=== PATIENT | female | born 1980 | race Caucasian/White ===

== ENCOUNTER 2017-03-09 17:26 | Emergency (ER) | payer SELFPAY ==
[~2017-03-09] VITALS: Ht 160 cm; Wt 82.1 kg
[2017-03-09 17:31] VITALS: Ht 160 cm; Wt 82.1 kg
[2017-03-09] MEDS ORDERED: PRENAT PO (18:15)
[2017-03-09] MEDS ORDERED: ASPI-664 PO (18:15)
== END 2017-03-09 20:58 | disposition left against medical advice (07) ==
LOC: FTE 17:26
DX: Z53.21 Procedure and treatment not carried out due to patient leaving prior to being seen by health care provider (principal)

== ENCOUNTER 2017-03-09 17:43 | Outpatient (CLI) | payer MEDICAID ==
[~2017-03-09] VITALS: Ht 152.4 cm; Wt 82.6 kg
[2017-03-09 18:15] VITALS: Ht 152.4 cm; Wt 82.6 kg
[2017-03-09] MEDS ORDERED: ASPI-664 PO (18:15)
[2017-03-09] MEDS ORDERED: PRENAT PO (18:15)
[2017-03-09 18:16] VITALS: BP 109/62; PULSE 91; RESP 18
[2017-03-09 19:48] LABS: ADD UMIC YES; URINE BILIRUBIN (Dip) NEGATIVE (NEGATIVE); URINE BLOOD (Dip) TRACE (NEGATIVE); URINE COLOR LT. YELLOW (YELLOW); URINE GLUCOSE (Dip) NEGATIVE (NEGATIVE); URINE KETONES (Dip) NEGATIVE (NEGATIVE); URINE LEUKOCYTE ESTERASE (Dip) 1+ (NEGATIVE); URINE NITRITE (Dip) NEGATIVE (NEGATIVE); URINE TOTAL PROTEIN (Dip) NEGATIVE (NEGATIVE); URINE UROBILINOGEN (Dip) 1.0 E.U./dL (0.1-1.0)
--- NOTE | 2017-03-09 19:53 | RADRPT ---
PROCEDURE: Abdominal ultrasound CLINICAL INDICATION: Abdominal pain TECHNIQUE: Galloway scale and color doppler ultrasound images of the right lower quadrant. COMPARISON: None. FINDINGS: No blind ending tubular structure is seen. The appendix is not definitely visualized. No lymphadenopathy. No free fluid. IMPRESSION: Appendix not definitely visualized. Therefore, the diagnosis of appendicitis cannot be confidently included nor excluded. RPTAT: AADD .Cayetano Tejada MD, MD Date Time Electronically viewed and signed by .Cayetano Tejada MD, on 03/09/2017 19:53 .B/
[2017-03-09 21:06] LABS: BACTERIA,URINE FEW; SQUAMOUS EPITHELIAL CELL,UR MODERATE; URINE RBCS 0-2 /HPF (0)
[2017-03-09 21:08] LABS: ADD SCAN DIFF NO
[2017-03-09 21:10] LABS: BASOPHILS % 0.3 % (0.0-2.0); EOSINOPHILS # 0.1 10^3/ul (0.0-0.5); EOSINOPHILS % 0.5 % (0.0-7.0); HEMATOCRIT 31.3 % (37.0-47.0); HEMOGLOBIN 10.3 g/dl (12.0-16.0); LYMPHOCYTES # 2.6 10^3/ul (0.8-2.9); LYMPHOCYTES % 17.5 % (15.0-51.0); MEAN CORPUSCULAR HEMOGLOBIN 27.7 pg (29.0-33.0); MEAN CORPUSCULAR HGB CONC 32.9 g/dl (32.0-37.0); MEAN CORPUSCULAR VOLUME 84.1 fl (82.0-101.0); MEAN PLATELET VOLUME 8.9 fl (7.4-10.4); MONOCYTE # 1.1 10^3/ul (0.3-0.9); MONOCYTES % 7.1 % (0.0-11.0); PLATELET COUNT 460 10^3/UL (140-415); RED BLOOD COUNT 3.72 10^6/ul (4.20-5.40); RED CELL DISTRIBUTION WIDTH 13.2 % (11.5-14.5); WHITE BLOOD COUNT 14.9 10^3/ul (4.8-10.8)
[2017-03-09 21:23] LABS: ALBUMIN 3.4 g/dl (3.3-4.9)
[2017-03-09 21:24] LABS: POTASSIUM 3.6 mmol/L (3.5-5.1)
[2017-03-09 21:26] LABS: ALBUMIN/GLOBULIN RATIO 0.79; BILIRUBIN,INDIRECT 0.1 mg/dl (0-1.1); BILIRUBIN,TOTAL 0.1 mg/dl (0.2-1.3); CREATININE 0.53 mg/dl (0.44-1.00); TOTAL PROTEIN 7.7 g/dl (6.1-8.1)
[2017-03-09 21:27] LABS: CALCIUM 8.9 mg/dl (8.4-10.2)
[2017-03-09] MEDS ORDERED: LACTATED RINGER'S 500 ML IV ONE (22:00)
[2017-03-09] MEDS ORDERED: CEFTRIAXONE 1 GM/50 ML (PMX) 50 ML IVPB ONE (22:00)
[2017-03-09] MEDS ORDERED: SOD CHLORIDE 0.9% 1,000 ML IV SCH (22:00)
--- NOTE | 2017-03-10 01:19 | TRIAGE ---
OB Triage Datetime Report Generated by CPN: 03/10/2017 01:19 Datetime: 03/10/2017 00:22 Labor Evaluation Frequency: 0 Monitor Mode: External Duration (sec)2399: 0 Pattern: Normal: <= 5 Contractions in 10 Minutes Resting Tone Antonito: Relaxed Pain Assessment Pain Scale: 3 Pain Presence: Intermittent Pain Type: Sharp; Ache Pain Location: Other Pain Goal: 1 Pain Relief Measures: Comfort Measures Pain Assessment Comments: pt. states she can move more easily at this time. Pain is decreasing - r ight side of abdomen. Datetime: 03/09/2017 23:00 Labor Evaluation Frequency: 0 Monitor Mode: External Duration (sec)2399: 0 Pattern: Normal: <= 5 Contractions in 10 Minutes Resting Tone Antonito: Relaxed Datetime: 03/09/2017 22:00 Labor Evaluation Frequency: 0 Monitor Mode: External Duration (sec)2399: 0 Pattern: Normal: <= 5 Contractions in 10 Minutes Resting Tone Antonito: Relaxed Datetime: 03/09/2017 20:38 Labor Evaluation Frequency: 0 Monitor Mode: External Duration (sec)2399: 0 Pattern: Normal: <= 5 Contractions in 10 Minutes Resting Tone Antonito: Relaxed Heart Rate FHR Baseline Rate: 140 Monitor Mode: External US Variability: Moderate 6-25 bpm Accelerations: 10X10 Category: Category I Datetime: 03/09/2017 19:00 Stage of : OB Triage Maternal Assessment Level of Consciousness: Fully Conscious Labor Evaluation Frequency: NONE Monitor Mode: External Resting Tone Antonito: Relaxed Heart Rate FHR Baseline Rate: 150 Monitor Mode: External US Variability: Moderate 6-25 bpm Accelerations: AGA Decelerations: AGA Pain Assessment Pain Scale: 0 Pain Presence: None/Denies Pain Type: N/A Pain Goal: 3 Vaginal Exam Membrane Status: Intact Vaginal Bleeding: None Datetime: 03/09/2017 18:13 Assessment Type: Triage Maternal Assessment Level of Consciousness: Fully Conscious DTR's/Clonus: DTRs 2+; No Clonus Headache: Denies Blurred Vision: No Respiratory Effort: Unlabored; Regular Rhythm; Equal Expansion Breath Sounds, Left: Clear and Equal Breath Sounds, Right: Clear and Equal Nausea/Vomiting: Denies RUQ Epigastric Pain: Denies Lower Extremities Edema: None Degree: None Upper Extremities Edema: None Degree: None Facial Edema: None Fall Risk Assessment History of Falling: (0) No Secondary Diagnosis: (0) No Ambulatory Aid: (0) Bedrest/Nurse Assist IV Therapy: (0) No Gait: (0) Normal/Bedrest/Immobile Mental Status: (0) Oriented to Own Ability Fall Score: 0 Fall Risk Score Definition: No Risk: No action required Datetime: 03/09/2017 18:07 Monitor Mode: External Monitor Mode: External US Datetime: 03/09/2017 18:03 Time of Arrival: 03/09/2017 17:40 EGA: 22.4 Arrived By: Ambulatory Arrived From: Home Chief Complaint: C/O RIGHT LOWER ABDOMINAL PAIN THAT RADIATES DOWN RIGHT LEG Movement: Present Contractions: Denies/Absent Rupture of Membranes: Denies Vaginal Bleeding: None Vaginal Discharge: Denies Recent Sexual Intercouse: Denies Abdominal Trauma: Not Applicable Patient Complaints: Other Provider Notified: LAMONT Initial Plan: NST
--- NOTE | 2017-03-10 01:20 | PN ---
Date/Time of Note Date/Time of Note DATE: 03/10/17 TIME: 01:05 OB Subjective Subjective Subjective lower abdominal pain rt for the last 3days no nausea vomiting or diarrhea pain increase with movement ,alleviated by rest denies any febrile episodes only has urinary frequency no dysuria pain is posotional , increase with left lrecumbant position OB Objective Objective Objective temp 98 hr 91 b/p 109/62 abdomen soft no guarding no referring tenderness or rebound tenderness mild tenderness on rlq no ruq or epigastric or periumbilical tenderness cva questionable tenderness on rt u/s unable to see gabriel or adnexal mass wbc 14.9000 u/a trace blood with 1+ leuk esteras HEENT: WNL Heart: Rhythm Normal Lungs: Clear, Equal Abdomen: WNL Extremities: Normal Reflexes: Normal OB Assessment/Plan Other Assessment: IUP 22.4w pelvic pain round lig syndrome 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
--- NOTE | 2017-03-10 09:58 | CONS ---
Date/Time of Note Date/Time of Note DATE: 03/10/17 TIME: 09:43 Consultation Date/Type/Reason Admit Date/Time March 09, 2017 OB triage consult Reason for Consultation This patient is a 36 years old 4 para 3 living 3 who had all her 3 deliveries by section She came to the triage area complaining of right lower quadrant pain since morning denies any vaginal bleeding On examination she is a well-developed well-nourished lady in the mid third her abdomen is generally soft she does have mild tenderness on her right lower quadrant no pain on the left quadrant of upper abdomen movement is normal heart is normal did not have any CVA tenderness her vital signs were basically within normal limits Blood pressure 109/62 pulse rate 91 respiration 18 temperature 98 On her laboratory studies there was a 1+ leukocyte in urine no bacteria in urine nitrate was negative And blood count her WBC was 14,029 mild anemia hemoglobin 10.3 hematocrit 31 Her other lab studies were also normal Laboratory Tests Test 03/09/17 19:00 03/09/17 21:00 Urine Color LT. YELLOW Urine Clarity CLEAR Urine pH 6.0 Urine Specific Gile 1.010 Urine Ketones NEGATIVE Urine Nitrite NEGATIVE Urine Bilirubin NEGATIVE Urine Urobilinogen 1.0 E.U./dL Urine Leukocyte Esterase 1+ Urine Microscopic RBC 0-2/HPF Urine Microscopic WBC 0-2/HPF Urine Squamous Epithelial Cells MODERATE Urine Bacteria FEW Urine Hemoglobin TRACE Urine Glucose NEGATIVE% Urine Total Protein NEGATIVE White Blood Count 14.910^3/ul Red Blood Count 3.7210^6/ul Hemoglobin 10.3g/dl Hematocrit 31.3% Mean Corpuscular Volume 84.1fl Mean Corpuscular Hemoglobin 27.7pg Mean Corpuscular Hemoglobin Concent 32.9g/dl Red Cell Distribution Width 13.2% Platelet Count 03317^3/UL Mean Platelet Volume 8.9fl Neutrophils % 74.0% Lymphocytes % 17.5% Monocytes % 7.1% Eosinophils % 0.5% Basophils % 0.3% Nucleated Red Blood Cells % 0.0/100WBC Neutrophils # 11.010^3/ul Lymphocytes # 2.610^3/ul Monocytes # 1.110^3/ul Eosinophils # 0.110^3/ul Basophils # 0.010^3/ul Nucleated Red Blood Cells # 0.010^3/ul Sodium Level 136mmol/L Potassium Level 3.6mmol/L Chloride Level 103mmol/L Carbon Dioxide Level 22mmol/L Anion Gap 15 Blood Urea Nitrogen 6mg/dl Creatinine 0.53mg/dl Glucose Level 80mg/dl Calcium Level 8.9mg/dl Total Bilirubin 0.1mg/dl Direct Bilirubin 0.00mg/dl Indirect Bilirubin 0.1mg/dl Aspartate Amino Transf (AST/SGOT) 13IU/L Alanine Aminotransferase (ALT/SGPT) 20IU/L Alkaline Phosphatase 167IU/L Total Protein 7.7g/dl Albumin 3.4g/dl Globulin 4.30g/dl Albumin/Globulin Ratio 0.79 Current Medications Medications (Trade) Dose Ordered Sig/Trevor Route PRN Reason Start Time Stop Time Status Last Admin Dose Admin Ceftriaxone Sodium 50 ml @ On laboratory studies 100 mls/hr ONCE ONCE IVPB 03/09/17 22:00 03/09/17 22:29 DC 03/09/17 22:25 100 MLS/HR Lactated Ringer's 500 ml @ 500 mls/hr Q1H ONCE IV 03/09/17 22:00 03/09/17 22:59 DC Sodium Chloride (NS) 1,000 ml @ 125 mls/hr Q8H IV 03/09/17 22:00 03/10/17 01:05 DC 03/09/17 22:25 125 MLS/HR Constitutional: No chills, No diaphoresis, No disoriented, No febrile, No improved, No no complaints, No other, No poor po, No requiring IVF, No requiring O2 Eyes: No discharge, No no complaints, No other, No pain, No redness, No visual change ENT: No bleeding, No congestion, No discharge, No dysphagia, No no complaints, No other, No pain, No sore throat Respiratory: No cough, No no complaints, No other, No pain, No pleuritic pain, No shortness of breath, No sputum, No wheezing Cardiovascular: other, No chest pain, No edema, No lightheadedness, No no complaints, No orthopenea , No palpitations, No paroxysmal nocturnal dyspnea Gastrointestinal: other (Slight right lower quadrant pain no rebound bowel sounds were normal no CVA tenderness), No blood, No constipation, No decreased appetite, No diarrhea, No flatus, No nausea, No no complaints, No pain, No passing stool, No vomiting Genitourinary: other (No CVA tenderness), No bleeding, No discharge, No dysuria, No flank pain, No hematuria, No no complaints Musculoskeletal: No back pain, No bone/joint pain, No neck pain, No no complaints, No other, No restricted range of motion, No swelling Skin: No bruising, No erythema, No laceration, No no complaints, No other, No pruritis, No rash, No skin lesions Neurologic: No confusion, No dizziness, No focal-weakness, No headache, No no complaints, No other, No seizure, No syncope Endocrine: No dry skin, No no complaints, No other, No polydypsia, No polyuria , No temp intolerance Additional Comments Follow-up was done by Dr. Shukla who prescribed ceftriaxone and patient was discharged home to be followed in her own clinic Social History Smoking Status: Never smoker Exam/Review of Systems Vital Signs Vitals Vital Signs Date Time Temp Pulse Resp B/P Pulse Ox O2 Delivery O2 Flow Rate FiO2 03/09/17 18:16 98.0 91 18 109/62 Room Air Results Result Diagram: 03/09/17209903/09/17 2100 Results 24 hrs Laboratory Tests Test 03/09/17 19:00 03/09/17 21:00 Urine Color LT. YELLOW Urine Clarity CLEAR Urine pH 6.0 Urine Specific Gile 1.010 Urine Ketones NEGATIVE Urine Nitrite NEGATIVE Urine Bilirubin NEGATIVE Urine Urobilinogen 1.0 E.U./dL Urine Leukocyte Esterase 1+ H Urine Microscopic RBC 0-2 Urine Microscopic WBC 0-2 Urine Squamous Epithelial Cells MODERATE Urine Bacteria FEW Urine Hemoglobin TRACE Urine Glucose NEGATIVE Urine Total Protein NEGATIVE White Blood Count 14.9 H Red Blood Count 3.72 L Hemoglobin 10.3 L Hematocrit 31.3 L Mean Corpuscular Volume 84.1 Mean Corpuscular Hemoglobin 27.7 L Mean Corpuscular Hemoglobin Concent 32.9 Red Cell Distribution Width 13.2 Platelet Count 460 H Mean Platelet Volume 8.9 Neutrophils % 74.0 Lymphocytes % 17.5 Monocytes % 7.1 Eosinophils % 0.5 Basophils % 0.3 Nucleated Red Blood Cells % 0.0 Neutrophils # 11.0 H Lymphocytes # 2.6 Monocytes # 1.1 H Eosinophils # 0.1 Basophils # 0.0 Nucleated Red Blood Cells # 0.0 Sodium Level 136 Potassium Level 3.6 Chloride Level 103 Carbon Dioxide Level 22 Anion Gap 15 Blood Urea Nitrogen 6 L Creatinine 0.53 Glucose Level 80 Calcium Level 8.9 Total Bilirubin 0.1 L Direct Bilirubin 0.00 Indirect Bilirubin 0.1 Aspartate Amino Transf (AST/SGOT) 13 L Alanine Aminotransferase (ALT/SGPT) 20 Alkaline Phosphatase 167 H Total Protein 7.7 Albumin 3.4 Globulin 4.30 H Albumin/Globulin Ratio 0.79 GIL MIGUEL MD Mar 10, 2017 09:54
== END 2017-03-10 00:45 | disposition home or self-care (01) ==
LOC: L-D 17:43 → OBT 17:43 → L-D 17:45 → OBT 03-10 00:45
DX: O26.892 Other specified pregnancy related conditions, second trimester (principal); R10.30 Lower abdominal pain, unspecified; R35.0 Frequency of micturition; R10.2 Pelvic and perineal pain; O09.522 Supervision of elderly multigravida, second trimester; Z3A.22 22 weeks gestation of pregnancy
CPT/HCPCS: 76705; 80053; 81001; 85025; 96361; 96365; J0696; J7030; J7120; Z7500; 81003; G0463

== ENCOUNTER 2017-06-28 08:46 | Inpatient (IN) | payer MEDICAID ==
[~2017-06-28] VITALS: Ht 152.4 cm; Wt 87.4 kg
[~2017-06-28 08:46] MED LIST: ASPI-664 PO; PRENAT PO
[2017-06-28 09:27] VITALS: Ht 152.4 cm; Wt 87.4 kg
[2017-06-28 09:28] VITALS: BP 129/66; PULSE 76; RESP 18
[2017-06-28] MEDS ORDERED: OXYTOCIN 30 UNITS/LR 500 ML IV SCH ×4 (09:30→17:08)
[2017-06-28] MEDS ORDERED: IBUPROFEN 600 MG TAB PO PRN (09:30)
[2017-06-28] MEDS ORDERED: LACTATED RINGER'S 1,000 ML IV PRN (09:30)
[2017-06-28] MEDS ORDERED: OXYTOCIN 30 UNITS/LR 500 ML IV PRN ×2 (09:30→17:30)
[2017-06-28] MEDS ORDERED: CARBOPROST 250 MCG INJ IM PRN ×2 (09:30→17:30)
[2017-06-28] MEDS ORDERED: LIDOCAINE 1% (MPF) 30 ML INJ INJ PRN (09:30)
[2017-06-28] MEDS ORDERED: MISOPROSTOL 200 MCG TAB PR PRN ×2 (09:30→17:30)
[2017-06-28] MEDS ORDERED: METHYLERGONOVINE 0.2 MG INJ IM PRN ×2 (09:30→17:30)
[2017-06-28] MEDS ORDERED: AMPICILLIN 2 GM/NS (PMX) 100 ML IV ONE (09:30)
[2017-06-28] MEDS: LACTATED RINGER'S 1,000 ML IV SCH ×2 (10:16→14:53)
[2017-06-28 10:24] LABS: BASOPHIL # 0.1 10^3/ul (0.0-0.1); BASOPHILS % 0.4 % (0.0-2.0); EOSINOPHILS % 0.3 % (0.0-7.0); HEMATOCRIT 31.5 % (37.0-47.0); HEMOGLOBIN 10.1 g/dl (12.0-16.0); LYMPHOCYTES # 2.4 10^3/ul (0.8-2.9); LYMPHOCYTES % 16.9 % (15.0-51.0); MEAN CORPUSCULAR HGB CONC 32.1 g/dl (32.0-37.0); MONOCYTE # 0.8 10^3/ul (0.3-0.9); MONOCYTES % 5.5 % (0.0-11.0); NEUTROPHIL # 10.7 10^3/ul (1.6-7.5); NEUTROPHILS % 76.2 % (39.0-77.0); PLATELET COUNT 370 10^3/UL (140-415); RED BLOOD COUNT 4.04 10^6/ul (4.20-5.40); RED CELL DISTRIBUTION WIDTH 17.3 % (11.5-14.5); WHITE BLOOD COUNT 14.1 10^3/ul (4.8-10.8)
[2017-06-28] MEDS: BUTORPHANOL 2 MG INJ IV PRN ×2 (10:43→13:02)
[2017-06-28 10:44] LABS: INR 0.9; PARTIAL THROMBOPLASTIN TIME 28.7 Sec (25.0-35.0); PROTIME 12.1 Sec (12.2-14.2); PT RATIO 0.9
--- NOTE | 2017-06-28 13:14 | RADRPT ---
PROCEDURE: OB ultrasound for biophysical profile CLINICAL INDICATION: Contractions TECHNIQUE: Multiple sonographic images of the pelvis were obtained. Transabdominal view of the gr avid uterus are available for review. The images were reviewed on a PACS workstation. COMPARISON: None available FINDINGS: breathing movement = 2/2 tone = 2/2 motion = 2/2 NINFA = 2/2 NINFA = 8.5 cm Single live intrauterine with cardiac activity. heart rate equals 132 beats p er minute. Presentation is cephalic. The placenta is anterior, grade II. IMPRESSION: 1. Single viable intrauterine gestation. 2. Biophysical profile = 06/29. 3. NINFA = 8.5 cm. RPTAT: KK .Karl Humphrey MD, MD Date Time Electronically viewed and signed by .Karl Humphrey MD, MD on 06/28/2017 13:14 .B/
[2017-06-28] MEDS ORDERED: AMPICILLIN 1 GM/NS (PMX) 50 ML IV SCH (13:30)
[2017-06-28 15:53] LABS: ADD UMIC YES; UR ASCORBIC ACID NEGATIVE (NEGATIVE); UR BILIRUBIN (Dip) NEGATIVE (NEGATIVE); UR BLOOD (Dip) 1+ mg/dL (NEGATIVE); UR CLARITY SLIGHTLY CLOUDY (CLEAR); UR COLOR YELLOW (YELLOW); UR GLUCOSE (Dip) NEGATIVE (NEGATIVE); UR KETONES (Dip) TRACE mg/dL (NEGATIVE); UR LEUKOCYTE ESTERASE (Dip) TRACE Leu/ul (NEGATIVE); UR MUCUS FEW /HPF (NONE SEEN); UR NITRITE (Dip) NEGATIVE (NEGATIVE); UR RBC 17 /HPF (0-5); UR SPECIFIC GRAVITY (Dip) 1.014 (1.003-1.030); UR SQUAMOUS EPITHELIAL CELL FEW /HPF (FEW); UR TOTAL PROTEIN (Dip) NEGATIVE (NEGATIVE); UR UROBILINOGEN (Dip) NEGATIVE (NEGATIVE)
[2017-06-28] MEDS ORDERED: FENTAnyl 50 MCG/ML VIAL ONE (16:02)
--- NOTE | 2017-06-28 16:28 | HP ---
Date/Time of Note Date/Time of Note DATE: 06/28/17 TIME: 16:25 OB - History Hx of Present Free Text/Dictation pt presents in labor. with Ucx no LOF good FM : 2 Para: 1 Care: Limited Care Obstetrical Complications: None Medical Complications: None Past Family/Social History * Past Medical, Surgical, Family and Obstetric Histories reviewed from chart. OB Admission Exam Vital Signs Vital Signs 37 Vital Signs Date Time Temp Pulse Resp B/P Pulse Ox O2 Delivery O2 Flow Rate FiO2 06/28/17 09:28 98.3 76 18 129/66 Room Air Physical Exam HEENT: WNL Abdomen: WNL Last 72 hours Lab Results CBC & BMP 06/28/17 10:00 OB Assessment/Plan Plan: Expectant Management Other plan: iup 38 + in labor plan pain meds as needed. TANNA HEADLEY MD Jun 28, 2017 16:28
[2017-06-28] MEDS ORDERED: FENTAnyl 50 MCG/ML VIAL IV ONE (16:30)
--- NOTE | 2017-06-28 16:30 | LDN ---
Date/Time of Note Date/Time of Note DATE: 06/28/17 TIME: 16:28 Delivery Summary pt delivered viable without complications Placenta Delivered: Spontaneously Meconium: none Episiotomy: No Perineal laceration: 2 Laceration repair: 2nd degree lac repaired with 2-0 vicryl Anesthesia type: None Estimated blood loss: 250 Sponge & Needle done & correct: Yes All needle counts correct: Yes Any foreign bodies felt in the: No Problems: Infant Delivery Information Sex Sex: male Suctioning Nose & mouth suctioned at rik: Yes Umbilical Cord Umbilical cord with: 3 Vessels Cord presentations: no nuchal cord Cord Blood was obtained: Yes Mother & Baby Disposition Disposition Mom & Baby to Maternity; Good: Yes Baby to NICU: No TANNA HAEDLEY MD Jun 28, 2017 16:30
[2017-06-28] MEDS ORDERED: BENZOCAINE 20% 56 ML SPRAY TOP PRN (17:30)
[2017-06-28] MEDS ORDERED: DIBUCAINE 1% 30 GM OINT PR PRN (17:30)
[2017-06-28] MEDS ORDERED: WITCH HAZEL/GLYCERIN PAD PR PRN (17:30)
[2017-06-28] MEDS ORDERED: ACETAMINOPHEN/CODEINE #3 TAB PO PRN (17:30)
[2017-06-28 17:55] VITALS: BP 119/62; PULSE 74; RESP 19
[2017-06-28 18:10] LABS: ALBUMIN 3.3 g/dl (3.3-4.9); ALBUMIN/GLOBULIN RATIO 0.84; BILIRUBIN,INDIRECT 0.2 mg/dl (0-1.1); BILIRUBIN,TOTAL 0.2 mg/dl (0.2-1.3); CALCIUM 8.7 mg/dl (8.4-10.2); CREATININE 0.57 mg/dl (0.44-1.00); TOTAL PROTEIN 7.2 g/dl (6.1-8.1); URIC ACID 4.7 mg/dl (3.1-7.9)
[2017-06-28] MEDS: IBUPROFEN 600 MG TAB PO SCH ×2 (18:12→23:39)
[2017-06-28 18:25] VITALS: BP 126/71; PULSE 79; RESP 20
[2017-06-28 19:45] VITALS: BP 123/68; PULSE 76; RESP 18
[2017-06-28] MEDS: LACTATED RINGER'S 1,000 ML IV* SCH (20:36)
[2017-06-28] MEDS: SENNA/DOCUSATE NA (8.6MG/50MG) TAB PO SCH (21:22)
[2017-06-29 00:20] VITALS: BP 120/70; PULSE 70; RESP 18
[2017-06-29 04:00] VITALS: BP 108/77; PULSE 78; RESP 18
[2017-06-29] MEDS: IBUPROFEN 600 MG TAB PO SCH ×4 (06:01→23:33)
[2017-06-29 08:00] VITALS: BP 111/67; PULSE 77; RESP 20
[2017-06-29] MEDS: PRENATAL VITAMIN PO SCH (10:07)
[2017-06-29] MEDS: SENNA/DOCUSATE NA (8.6MG/50MG) TAB PO SCH ×2 (10:07→21:30)
[2017-06-29] MEDS: ASPIRIN (EC) 81 MG TAB PO SCH (10:07)
[2017-06-29 12:17] LABS: RUBELLA ANTIBODY - IGG <0.90 index
--- NOTE | 2017-06-29 19:12 | PD.PPDC ---
[employer] Discharge Instruction Condition Patient Condition: Good Diet Diet: Resume Regular Diet Activity/Restrictions Activity: Normal Activity May Shower Restrictions: No Exercising No Lifting No Driving No Sexual Activity Nothing in the Vagina No [place] No Tampons, douche Follow-up Follow-up with Physician: 3, Week/Weeks Return to clinic for ECONOMIC DEVELOPMENT SPECIALIST Instructions: Fever greater than 101 Chills Worsening abdominal pain Excessive Vaginal Bleeding More than 2 pads per hour Unable to tolerate diet OB Instructions: Breast Tenderness Depression Blurried Vision Headache Surgical Instructions: Incisional Drainage Incisional Redness MENG RANGEL MD Jun 29, 2017 19:12
--- NOTE | 2017-06-29 19:15 | DS ---
Date/Time of Note Date/Time of Note DATE: 06/29/17 TIME: 19:14 Obstetrical Discharge Record Final Diagnosis Final Diagnosis: Term delivered Vaginal Delivery Obstetrical Delivery: Spontaneous Complications Augmentation: No Induction: No Condition on Discharge Physical Assessment Voiding: Yes Bowel Movement: Yes Breast: Soft, non-tender, Filling Fundus: Firm Calf Tenderness: No Patient Condition: Fair MENG RANGEL MD Jun 29, 2017 19:15
[2017-06-29 19:50] VITALS: BP 118/70; PULSE 77; RESP 18
[2017-06-30 04:05] VITALS: BP 127/60; PULSE 72; RESP 18
[2017-06-30] MEDS: IBUPROFEN 600 MG TAB PO SCH ×2 (06:00→11:54)
[2017-06-30 08:45] VITALS: BP 108/68; PULSE 76; RESP 18
[2017-06-30] MEDS: SENNA/DOCUSATE NA (8.6MG/50MG) TAB PO SCH (09:14)
[2017-06-30] MEDS: LACTATED RINGER'S 1,000 ML IV* SCH (09:14)
[2017-06-30] MEDS: PRENATAL VITAMIN PO SCH (09:14)
[2017-06-30] MEDS: ASPIRIN (EC) 81 MG TAB PO SCH (09:14)
[2017-06-30 10:21] LABS: BASOPHIL # 0.1 10^3/ul (0.0-0.1); BASOPHILS % 0.4 % (0.0-2.0); EOSINOPHILS # 0.1 10^3/ul (0.0-0.5); HEMATOCRIT 28.4 % (37.0-47.0); HEMOGLOBIN 8.9 g/dl (12.0-16.0); LYMPHOCYTES # 2.8 10^3/ul (0.8-2.9); LYMPHOCYTES % 24.6 % (15.0-51.0); MEAN CORPUSCULAR HEMOGLOBIN 25.1 pg (29.0-33.0); MEAN CORPUSCULAR HGB CONC 31.3 g/dl (32.0-37.0); MEAN CORPUSCULAR VOLUME 80.2 fl (82.0-101.0); MEAN PLATELET VOLUME 9.9 fl (7.4-10.4); MONOCYTE # 0.7 10^3/ul (0.3-0.9); MONOCYTES % 6.5 % (0.0-11.0); NEUTROPHIL # 7.5 10^3/ul (1.6-7.5); NEUTROPHILS % 66.8 % (39.0-77.0); PLATELET COUNT 328 10^3/UL (140-415); RED BLOOD COUNT 3.54 10^6/ul (4.20-5.40); RED CELL DISTRIBUTION WIDTH 17.9 % (11.5-14.5); WHITE BLOOD COUNT 11.2 10^3/ul (4.8-10.8)
[2017-06-30] MEDS ORDERED: MEASLES,MUMPS,RUBELLA VACCINE INJ SC* ONE (12:30)
== END 2017-06-30 15:35 | disposition home or self-care (01) | DRG 775 ==
LOC: OBT 08:46 → L-D 08:51 → OBT 09:52 → L-D 09:54 → PP1 17:42
PROVIDERS: ADMIT Obstetrics & Gynecology; ATTEND Obstetrics & Gynecology
PROC: 10E0XZZ Delivery of Products of Conception, External Approach (ICD-10-PCS; principal; 2017-06-28)
PROC: 0KQM0ZZ Repair Perineum Muscle, Open Approach (ICD-10-PCS; 2017-06-28)
DX: O70.1 Second degree perineal laceration during delivery (principal); Z37.0 Single live birth; Z3A.38 38 weeks gestation of pregnancy
CPT/HCPCS: 76818; 80053; 80307; 81001; 84560; 85025; 85384; 85610; 85730; 86592; 86703; 86762; 86900; 86901; 87340; G0463; J0290; J0595; J2590; J3010; J7120